=== PATIENT | male | born 1980 | race Caucasian/White ===

== ENCOUNTER 2017-07-13 14:35 | Inpatient (IN) | payer OTHER ==
[~2017-07-13] VITALS: Ht 190.5 cm; Wt 103.2 kg
[~2017-07-13 14:35] MED LIST: LYRICA100 MG PO; LYRICA200 MG PO
[2017-07-13 15:09] LABS: HEMATOCRIT 42.5 % (38.0-50.0); HEMOGLOBIN 14.5 G/DL (12.5-16.6); MCHC 34.1 G/DL (30.0-36.0); MCV 99.8 FL (86-99); RBC DIS.WIDTH-CV 12.1 % (11.8-14.6); RBC DIS.WIDTH-SD 44.7 % (39-53); RED BLOOD COUNT 4.26 M/uL (4.00-5.50); WHITE BLOOD COUNT 9.4 K/uL (4.1-10.2)
[2017-07-13 15:11] LABS: APPEARANCE SL.HAZY ((CLEAR)); BILIRUBIN NEGATIVE; BLOOD NEGATIVE; COLOR AMBER ((YELLOW)); GLUCOSE (STRIP) NEGATIVE; KETONES 5; LEUKOCYTES NEGATIVE; NITRITE NEGATIVE; PROTEIN (STRIP) 30; SPECIFIC GRAVITY 1.021 (1.000-1.030)
[2017-07-13 15:18] LABS: BACTERIA RARE /HPF; CALCIUM OXALATE CRYSTALS 2+ /HPF; EPITHELIAL CELLS RARE /HPF; MUCUS TRACE /LPF; RED BLOOD CELLS 0-5 /HPF (0-5); UCUL ADDED? YES
[2017-07-13 15:20] LABS: AMPHETAMINE NEGATIVE (500 ng/mL); BARBITURATES NEGATIVE (200 ng/mL); BENZODIAZEPINES PRESUMPTIVE POSITIVE (150 ng/mL); BUPRENORPHINE NEGATIVE (10 ng/mL); COCAINE NEGATIVE (150 ng/mL); METHADONE NEGATIVE (200 ng/mL); METHAMPHETAMINE NEGATIVE (500 ng/mL); OPIATES (MORPHINE) NEGATIVE (100 ng/mL); OXYCODONE NEGATIVE (100 ng/mL); PHENCYCLIDINE NEGATIVE (25 ng/mL); PROPOXYPHENE NEGATIVE (300 ng/mL); THC CANNABINOIDS NEGATIVE (50 ng/mL); TRICYCLIC ANTIDEPRESSANTS NEGATIVE (300 ng/mL)
[2017-07-13 15:22] LABS: CHLORIDE 102 mEq/L (99-109); POTASSIUM 4.5 mEq/L (3.7-5.4); SODIUM 140 mEq/L (136-147)
[2017-07-13 15:24] LABS: GLUCOSE 194 mg/dL (70-99); TOTAL PROTEIN 6.7 g/dL (6.4-8.3)
[2017-07-13 15:26] LABS: TOTAL BILIRUBIN 4.7 mg/dL (0.0-1.0)
[2017-07-13 15:27] LABS: SERUM ETHYL ALCOHOL < 10 mg/dL
[2017-07-13 15:28] LABS: ALKALINE PHOSPHATASE 263 IU/L (3-129); CREATININE 0.9 mg/dL (0.6-1.3); GFR ESTIMATE (CALCULATED) > 59 mL/min/ (58.99-99999)
[2017-07-13 15:29] LABS: UREA NITROGEN (BUN) 15 mg/dL (9-23)
[2017-07-13 15:30] LABS: AST (GOT) 171 IU/L (2-34)
[2017-07-13 15:31] LABS: ALT (GPT) 45 IU/L (3-49); LIPASE 111 U/L (1.0-51.0)
[2017-07-13 15:57] LABS: IMM.PLATELET FRACTION 9.2 (1-7); PLAT.SUFFICIENCY VERY DECREASED
[2017-07-13 16:02] LABS: PLATELET COUNT 29 K/uL (156-360)
[2017-07-13 16:34] LABS: BENZODIAZEPINES, URINE SCREEN POSITIVE (200 ng/mL)
[2017-07-13] MEDS ORDERED: GLUCOTROL5 MG PO (17:51)
[2017-07-13] MEDS ORDERED: LYRICA300 MG PO (17:51)
[2017-07-13] MEDS ORDERED: PRILOSEC20 MG PO (17:52)
[2017-07-13] MEDS ORDERED: LIPITOR10 MG PO (17:52)
[2017-07-13] MEDS ORDERED: BENICAR HCT 201 EACH PO (17:52)
[2017-07-13] MEDS ORDERED: K-DUR20 MEQ PO (17:53)
[2017-07-13] MEDS ORDERED: CELEXA20 MG PO (17:53)
[2017-07-13 18:36] LABS: HEMATOCRIT 38.2 % (38.0-50.0); MCH 34.2 PG (29.0-34.0); MCV 100.5 FL (86-99); RBC DIS.WIDTH-CV 12.2 % (11.8-14.6); RBC DIS.WIDTH-SD 45.6 % (39-53); WHITE BLOOD COUNT 8.1 K/uL (4.1-10.2)
[2017-07-13 19:18] LABS: IMM.PLATELET FRACTION 9.9 (1-7); PLAT.SUFFICIENCY VERY DECREASED
[2017-07-13 19:19] LABS: PLATELET COUNT 23 K/uL (156-360)
[2017-07-14] VITALS (7 sets, daily range): BP systolic 117–139; BP diastolic 62–80
[2017-07-14 02:32] LABS: C DIFF TOXIN POSITIVE (NEGATIVE)
[2017-07-14 07:08] LABS: ALBUMIN 3.1 G/DL (3.2-4.8); ALKALINE PHOSPHATASE 183 IU/L (3-129); ALT (GPT) 31 IU/L (3-49); AST (GOT) 119 IU/L (2-34); CHLORIDE 104 MEQ/L (99-109); CREATININE 0.9 MG/DL (0.6-1.3); DIRECT BILIRUBIN 3.1 mg/dL (0.0-0.3); GFR ESTIMATE (CALCULATED) > 59 mL/min/ (58.99-99999); GLUCOSE 59 mg/dL (70-99); LIPASE 114 U/L (1.0-51.0); POTASSIUM 3.6 MEQ/L (3.7-5.4); SODIUM 140 MEQ/L (136-147); TOTAL BILIRUBIN 5.2 MG/DL (0.0-1.0); TOTAL PROTEIN 4.9 G/DL (6.4-8.3); UREA NITROGEN (BUN) 14 mg/dL (9-23)
[2017-07-14 10:27] LABS: MAGNESIUM 1.6 mg/dl (1.3-2.7)
[2017-07-14 10:38] LABS: HEMOGLOBIN A1c (GLYCOHEMOGLOB) 6.3 % (Below 5.7)
[2017-07-15] VITALS (7 sets, daily range): BP systolic 100–126; BP diastolic 59–82
[2017-07-15 06:38] LABS: HEMOGLOBIN 11.4 G/DL (12.5-16.6); MCH 33.9 PG (29.0-34.0); MCHC 32.6 G/DL (30.0-36.0); MCV 104.2 FL (86-99); RBC DIS.WIDTH-SD 46.1 % (39-53); RED BLOOD COUNT 3.36 M/uL (4.00-5.50); WHITE BLOOD COUNT 6.3 K/uL (4.1-10.2)
[2017-07-15 06:56] LABS: INTER. NORMALIZED RATIO 1.6
[2017-07-15 06:59] LABS: PTT 33.2 SEC (25-37)
[2017-07-15 07:08] LABS: ALKALINE PHOSPHATASE 163 IU/L (3-129); ALT (GPT) 30 IU/L (3-49); AST (GOT) 103 IU/L (2-34); CHLORIDE 106 MEQ/L (99-109); CREATININE 0.8 MG/DL (0.6-1.3); GFR ESTIMATE (CALCULATED) > 59 mL/min/ (58.99-99999); GLUCOSE 88 mg/dL (70-99); SODIUM 137 MEQ/L (136-147); TOTAL BILIRUBIN 7.2 MG/DL (0.0-1.0); TOTAL PROTEIN 5.1 G/DL (6.4-8.3); UREA NITROGEN (BUN) 10 mg/dL (9-23)
[2017-07-15 07:09] LABS: PLAT.SUFFICIENCY VERY DECREASED
[2017-07-15 07:20] LABS: IMM.PLATELET FRACTION 8.5 (1-7)
[2017-07-15 07:24] LABS: PLATELET COUNT 23 K/uL (156-360)
[2017-07-16 03:25] VITALS: BP 110/78
[2017-07-16 07:12] LABS: BASOPHIL (%) 0.6 % (0-1); EOSINOPHIL (%) 0.6 % (0-5); HEMATOCRIT 37.5 % (38.0-50.0); IMMATURE GRANULOCYTE (%) 0.4 % (0.0-0.7); LYMPHOCYTE (%) 14.5 % (15-42); MCH 33.7 PG (29.0-34.0); MCV 105.3 FL (86-99); MONOCYTE COUNT 0.7 K/uL (0-0.8); NEUTROPHIL (%) 73.9 % (45-76); RBC DIS.WIDTH-CV 12.1 % (11.8-14.6); RBC DIS.WIDTH-SD 47.3 % (39-53); RED BLOOD COUNT 3.56 M/uL (4.00-5.50); WHITE BLOOD COUNT 6.7 K/uL (4.1-10.2)
[2017-07-16 07:38] LABS: ALBUMIN 3.1 G/DL (3.2-4.8); CHLORIDE 104 MEQ/L (99-109); CREATININE 0.9 MG/DL (0.6-1.3); GFR ESTIMATE (CALCULATED) > 59 mL/min/ (58.99-99999); GLUCOSE 109 mg/dL (70-99); POTASSIUM 3.7 MEQ/L (3.7-5.4); SODIUM 139 MEQ/L (136-147); UREA NITROGEN (BUN) 10 mg/dL (9-23)
[2017-07-16 07:48] LABS: ANISOCYTOSIS 1+; IMM.PLATELET FRACTION 8.3 (1-7); MACROCYTES 2+; PLAT.SUFFICIENCY VERY DECREASED; SPHEROCYTES 1+
[2017-07-16 07:49] LABS: PLATELET COUNT 31 K/uL (156-360)
[2017-07-16 08:29] VITALS: BP 139/65
[2017-07-16 11:46] VITALS: BP 110/63
[2017-07-16 16:00] VITALS: BP 116/60
[2017-07-16 19:44] VITALS: BP 111/71
[2017-07-17] VITALS (7 sets, daily range): BP systolic 105–127; BP diastolic 59–82
[2017-07-17 06:39] LABS: BASOPHIL (%) 0.5 % (0-1); EOSINOPHIL (%) 0.9 % (0-5); EOSINOPHIL COUNT 0.1 K/uL (0-0.3); HEMATOCRIT 37.8 % (38.0-50.0); IMMATURE GRANULOCYTE (%) 0.5 % (0.0-0.7); LYMPHOCYTE (%) 19.8 % (15-42); LYMPHOCYTE COUNT 1.3 K/uL (1.0-2.8); MCH 33.1 PG (29.0-34.0); MCHC 31.7 G/DL (30.0-36.0); MCV 104.4 FL (86-99); MONOCYTE (%) 13.8 % (3-12); MONOCYTE COUNT 0.9 K/uL (0-0.8); NEUTROPHIL (%) 64.5 % (45-76); NEUTROPHIL COUNT 4.1 K/uL (1.8-6.4); RBC DIS.WIDTH-CV 12.4 % (11.8-14.6); RBC DIS.WIDTH-SD 47.7 % (39-53); RED BLOOD COUNT 3.62 M/uL (4.00-5.50); WHITE BLOOD COUNT 6.3 K/uL (4.1-10.2)
[2017-07-17 07:04] LABS: ALBUMIN 3.1 G/DL (3.2-4.8); ALKALINE PHOSPHATASE 182 IU/L (3-129); ALT (GPT) 28 IU/L (3-49); AST (GOT) 80 IU/L (2-34); CHLORIDE 106 MEQ/L (99-109); CREATININE 0.8 MG/DL (0.6-1.3); GFR ESTIMATE (CALCULATED) > 59 mL/min/ (58.99-99999); GLUCOSE 95 mg/dL (70-99); MAGNESIUM 1.3 mg/dl (1.3-2.7); PHOSPHORUS 2.6 mg/dL (2.5-4.9); POTASSIUM 3.8 MEQ/L (3.7-5.4); SODIUM 136 MEQ/L (136-147); TOTAL PROTEIN 4.8 G/DL (6.4-8.3); UREA NITROGEN (BUN) 8 mg/dL (9-23)
[2017-07-17 07:14] LABS: ANISOCYTOSIS 1+; IMM.PLATELET FRACTION 7.7 (1-7); MACROCYTES 1+; PLAT.SUFFICIENCY DECREASED; PLATELET COUNT 35 K/uL (156-360); POLYCHROMASIA 1+
[2017-07-18 04:04] VITALS: BP 125/75
[2017-07-18 07:05] VITALS: BP 120/62
[2017-07-18 10:39] LABS: BASOPHIL (%) 0.6 % (0-1); EOSINOPHIL (%) 0.8 % (0-5); EOSINOPHIL COUNT 0.1 K/uL (0-0.3); HEMATOCRIT 36.3 % (38.0-50.0); HEMOGLOBIN 11.8 G/DL (12.5-16.6); IMMATURE GRANULOCYTE (%) 0.6 % (0.0-0.7); LYMPHOCYTE (%) 16.9 % (15-42); MCH 33.5 PG (29.0-34.0); MCHC 32.5 G/DL (30.0-36.0); MCV 103.1 FL (86-99); MONOCYTE (%) 17.3 % (3-12); MONOCYTE COUNT 1.1 K/uL (0-0.8); NEUTROPHIL (%) 63.8 % (45-76); NEUTROPHIL COUNT 3.9 K/uL (1.8-6.4); RBC DIS.WIDTH-CV 12.7 % (11.8-14.6); RED BLOOD COUNT 3.52 M/uL (4.00-5.50); WHITE BLOOD COUNT 6.2 K/uL (4.1-10.2)
[2017-07-18 10:56] LABS: ALBUMIN 2.9 G/DL (3.2-4.8); ALKALINE PHOSPHATASE 164 IU/L (3-129); ALT (GPT) 25 IU/L (3-49); AST (GOT) 72 IU/L (2-34); CHLORIDE 103 MEQ/L (99-109); CREATININE 0.8 MG/DL (0.6-1.3); DIRECT BILIRUBIN 4.8 mg/dL (0.0-0.3); GFR ESTIMATE (CALCULATED) > 59 mL/min/ (58.99-99999); GLUCOSE 118 mg/dL (70-99); POTASSIUM 4.5 MEQ/L (3.7-5.4); SODIUM 136 MEQ/L (136-147); TOTAL BILIRUBIN 7.5 MG/DL (0.0-1.0); TOTAL PROTEIN 4.6 G/DL (6.4-8.3); UREA NITROGEN (BUN) 8 mg/dL (9-23)
[2017-07-18 11:00] VITALS: BP 124/65
[2017-07-18 11:54] LABS: IMM.PLATELET FRACTION 7.8 (1-7); PLAT.SUFFICIENCY DECREASED; PLATELET COUNT 45 K/uL (156-360)
[2017-07-18] MEDS ORDERED: VANCOCIN 250 M250 MG PO (13:02)
[2017-07-18] MEDS ORDERED: FOLIC ACID1 MG PO (13:50)
[2017-07-18] MEDS ORDERED: MEPHYTON5 MG PO (13:50)
[2017-07-18] MEDS ORDERED: PEPCID20 MG PO (13:51)
[2017-07-18] MEDS ORDERED: LIBRIUM10 MG PO (13:58)
[2017-07-18] MEDS ORDERED: Thiamine,Vitamin B1 PO (13:58)
== END 2017-07-18 16:24 | disposition home or self-care (01) | DRG 372 ==
LOC: EME 14:35 → 5EAST 17:29 → EDOF 17:29 → ENRESERV 17:31 → 5EAST 20:35 → ENPENDDIS 07-18 → 5EAST 07-18 16:24
PROVIDERS: Emergency Medicine; Hospitalist; Internal Medicine; Internal Medicine Gastroenterology; Internal Medicine Hematology & Oncology
DX: A04.72 Enterocolitis due to Clostridium difficile, not specified as recurrent (principal); E83.42 Hypomagnesemia; D69.59 Other secondary thrombocytopenia; D68.4 Acquired coagulation factor deficiency; E11.42 Type 2 diabetes mellitus with diabetic polyneuropathy; K70.0 Alcoholic fatty liver; K70.10 Alcoholic hepatitis without ascites; F10.239 Alcohol dependence with withdrawal, unspecified; Y90.0 Blood alcohol level of less than 20 mg/100 ml; E87.6 Hypokalemia; D73.1 Hypersplenism; I10 Essential (primary) hypertension; K21.9 Gastro-esophageal reflux disease without esophagitis; F41.9 Anxiety disorder, unspecified; F17.210 Nicotine dependence, cigarettes, uncomplicated
CPT/HCPCS: 74019; 74177; 80048; 80053; 80069; 80076; 81003; 82607; 82746; 82948; 83036; 83605; 83690; 83735; 84100; 84999; 85025; 85027; 85610; 85730; 87086; 87177; 87329; 87493; 87506; 99281; 99284; G0480; J0744; J1170; J1815; J2060; J2405; J2765; J3411; J3475; J3480; J7030; S0028; S0030

== ENCOUNTER 2017-07-26 18:52 | Inpatient (IN) | payer OTHER ==
[~2017-07-26] VITALS: Ht 190.5 cm; Wt 123.8 kg
[~2017-07-26 18:52] MED LIST changes: +BENICAR HCT 201 EACH PO; +CELEXA20 MG PO; +FOLIC ACID1 MG PO; +GLUCOTROL5 MG PO; +K-DUR20 MEQ PO; +LIBRIUM10 MG PO; +LIPITOR10 MG PO; +LYRICA300 MG PO; +MEPHYTON5 MG PO; +PEPCID20 MG PO; +PRILOSEC20 MG PO; +Thiamine,Vitamin B1 PO; +VANCOCIN 250 M250 MG PO
[2017-07-26 20:27] LABS: BASOPHIL (%) 1.2 % (0-1); BASOPHIL COUNT 0.2 K/uL (0-0.1); EOSINOPHIL (%) 0.6 % (0-5); EOSINOPHIL COUNT 0.1 K/uL (0-0.3); HEMATOCRIT 43.4 % (38.0-50.0); IMMATURE GRANULOCYTE (%) 0.4 % (0.0-0.7); LYMPHOCYTE (%) 29.7 % (15-42); LYMPHOCYTE COUNT 4.3 K/uL (1.0-2.8); MCH 34.1 PG (29.0-34.0); MCHC 33.6 G/DL (30.0-36.0); MCV 101.4 FL (86-99); MONOCYTE (%) 7.2 % (3-12); NEUTROPHIL (%) 60.9 % (45-76); NEUTROPHIL COUNT 8.8 K/uL (1.8-6.4); RBC DIS.WIDTH-CV 13.2 % (11.8-14.6); WHITE BLOOD COUNT 14.4 K/uL (4.1-10.2)
[2017-07-26 20:29] LABS: HEMOGLOBIN 14.6 G/DL (12.5-16.6); PLATELET COUNT 207 K/uL (156-360); RED BLOOD COUNT 4.28 M/uL (4.00-5.50)
[2017-07-26 20:49] LABS: ALBUMIN 3.6 g/dL (3.2-4.8); CHLORIDE 106 mEq/L (99-109); POTASSIUM 4.1 mEq/L (3.7-5.4); SODIUM 141 mEq/L (136-147)
[2017-07-26 20:49] LABS: APPEARANCE SL.HAZY ((CLEAR)); BILIRUBIN NEGATIVE; BLOOD NEGATIVE; GLUCOSE (STRIP) NEGATIVE; KETONES NEGATIVE; LEUKOCYTES NEGATIVE; NITRITE NEGATIVE; PROTEIN (STRIP) NEGATIVE; SPECIFIC GRAVITY 1.013 (1.000-1.030); UROBILINOGEN 0.2 MG/DL (0.2-1.0)
[2017-07-26 20:52] LABS: GLUCOSE 78 mg/dL (70-99); TOTAL PROTEIN 6.3 g/dL (6.4-8.3)
[2017-07-26 20:53] LABS: TOTAL BILIRUBIN 2.3 mg/dL (0.0-1.0)
[2017-07-26 20:54] LABS: SERUM ETHYL ALCOHOL 285 mg/dL
[2017-07-26 20:55] LABS: ALKALINE PHOSPHATASE 246 IU/L (3-129); CREATININE 0.7 mg/dL (0.6-1.3); GFR ESTIMATE (CALCULATED) > 59 mL/min/ (58.99-99999)
[2017-07-26 20:56] LABS: UREA NITROGEN (BUN) 8 mg/dL (9-23)
[2017-07-26 20:57] LABS: AST (GOT) 157 IU/L (2-34); DIRECT BILIRUBIN 1.7 mg/dL (0.0-0.3)
[2017-07-26 20:58] LABS: ALT (GPT) 36 IU/L (3-49)
[2017-07-26 20:59] LABS: LIPASE 44 U/L (1.0-51.0)
[2017-07-26 21:03] LABS: BACTERIA 1+ /HPF; COLOR AMBER ((YELLOW)); EPITHELIAL CELLS RARE /HPF; HYALINE CASTS 40-50 /LPF; MUCUS TRACE /LPF; RED BLOOD CELLS 0-5 /HPF (0-5); WHITE BLOOD CELLS 0-5 /HPF (0-5)
[2017-07-26 21:28] LABS: SOURCE URINE
[2017-07-26] MEDS ORDERED: POTASSIUM CHLO20 ME2 PO (23:04)
[2017-07-26] MEDS ORDERED: VITAMIN B-1100 MG PO (23:05)
[2017-07-26] MEDS ORDERED: CITALOPRAM HBR20 MG PO (23:05)
[2017-07-26] MEDS ORDERED: CHLORDIAZEPOXID10 MG PO (23:07)
[2017-07-26] MEDS ORDERED: GLIPIZIDE5 MG PO (23:07)
[2017-07-26] MEDS ORDERED: ATORVASTATIN CA10 MG PO (23:08)
[2017-07-26] MEDS ORDERED: OMEPRAZOLE20 MG PO (23:09)
[2017-07-26] MEDS ORDERED: OLMESARTAN-HCT1 EACH PO (23:10)
[2017-07-27 09:31] LABS: HEMOGLOBIN 12.9 G/DL (12.5-16.6); MCH 34.1 PG (29.0-34.0); MCHC 33.1 G/DL (30.0-36.0); MCV 103.2 FL (86-99); RBC DIS.WIDTH-SD 49.7 % (39-53); RED BLOOD COUNT 3.78 M/uL (4.00-5.50); WHITE BLOOD COUNT 9.8 K/uL (4.1-10.2)
[2017-07-27 09:41] LABS: ALBUMIN 3.1 g/dL (3.2-4.8); CHLORIDE 107 mEq/L (99-109); POTASSIUM 4.4 mEq/L (3.7-5.4); SODIUM 139 mEq/L (136-147)
[2017-07-27 09:44] LABS: GLUCOSE 57 mg/dL (70-99); TOTAL PROTEIN 5.4 g/dL (6.4-8.3)
[2017-07-27 09:46] LABS: TOTAL BILIRUBIN 2.3 mg/dL (0.0-1.0)
[2017-07-27 09:47] LABS: ALKALINE PHOSPHATASE 213 IU/L (3-129); CREATININE 0.6 mg/dL (0.6-1.3); GFR ESTIMATE (CALCULATED) > 59 mL/min/ (58.99-99999)
[2017-07-27 09:48] LABS: UREA NITROGEN (BUN) 7 mg/dL (9-23)
[2017-07-27 09:49] LABS: AST (GOT) 135 IU/L (2-34)
[2017-07-27 09:50] LABS: ALT (GPT) 32 IU/L (3-49)
[2017-07-27 10:12] LABS: PLATELET COUNT 125 K/uL (156-360)
[2017-07-27 13:50] LABS: C DIFF TOXIN ND (NEGATIVE)
[2017-07-27 14:55] LABS: CHLAMYDIA TRACHOMATIS NEGATIVE; NEISSERIA GONORRHOEAE NEGATIVE
[2017-07-27 15:57] VITALS: BP 122/80
[2017-07-27 19:56] VITALS: BP 140/74
[2017-07-27 23:46] VITALS: BP 125/76
[2017-07-28 05:01] VITALS: BP 136/78
[2017-07-28 08:29] VITALS: BP 137/86
[2017-07-28 11:05] LABS: HEMATOCRIT 38.1 % (38.0-50.0); HEMOGLOBIN 12.6 G/DL (12.5-16.6); MCH 33.6 PG (29.0-34.0); MCHC 33.1 G/DL (30.0-36.0); MCV 101.6 FL (86-99); PLATELET COUNT 97 K/uL (156-360); RBC DIS.WIDTH-CV 12.4 % (11.8-14.6); RBC DIS.WIDTH-SD 46.8 % (39-53); RED BLOOD COUNT 3.75 M/uL (4.00-5.50); WHITE BLOOD COUNT 8.6 K/uL (4.1-10.2)
[2017-07-28 11:37] LABS: ALBUMIN 3.1 G/DL (3.2-4.8); ALKALINE PHOSPHATASE 199 IU/L (3-129); ALT (GPT) 23 IU/L (3-49); AST (GOT) 96 IU/L (2-34); CHLORIDE 98 MEQ/L (99-109); CREATININE 0.6 MG/DL (0.6-1.3); GFR ESTIMATE (CALCULATED) > 59 mL/min/ (58.99-99999); SODIUM 137 MEQ/L (136-147); TOTAL BILIRUBIN 3.7 MG/DL (0.0-1.0); UREA NITROGEN (BUN) 8 mg/dL (9-23)
[2017-07-28 11:38] LABS: GLUCOSE 110 mg/dL (70-99)
[2017-07-28 13:49] VITALS: BP 136/80
[2017-07-28 15:55] VITALS: BP 132/83
[2017-07-28 19:49] VITALS: BP 128/85
[2017-07-29 00:01] VITALS: BP 112/67
[2017-07-29 00:04] LABS: ALBUMIN 3.1 g/dL (3.2-4.8)
[2017-07-29 00:09] LABS: ALKALINE PHOSPHATASE 211 IU/L (3-129)
[2017-07-29 00:10] LABS: TOTAL BILIRUBIN 3.1 mg/dL (0.0-1.0)
[2017-07-29 00:12] LABS: AST (GOT) 101 IU/L (2-34); DIRECT BILIRUBIN 2.1 mg/dL (0.0-0.3)
[2017-07-29 00:13] LABS: ALT (GPT) 25 IU/L (3-49); LIPASE 36 U/L (1.0-51.0)
[2017-07-29 04:21] VITALS: BP 135/77
[2017-07-29 06:46] LABS: HEMATOCRIT 37.1 % (38.0-50.0); HEMOGLOBIN 12.3 G/DL (12.5-16.6); MCH 34.1 PG (29.0-34.0); MCHC 33.2 G/DL (30.0-36.0); MCV 102.8 FL (86-99); PLATELET COUNT 94 K/uL (156-360); RBC DIS.WIDTH-CV 12.5 % (11.8-14.6); RBC DIS.WIDTH-SD 47.2 % (39-53); RED BLOOD COUNT 3.61 M/uL (4.00-5.50)
[2017-07-29 07:12] LABS: ALBUMIN 2.9 G/DL (3.2-4.8); ALKALINE PHOSPHATASE 173 IU/L (3-129); ALT (GPT) 22 IU/L (3-49); AST (GOT) 103 IU/L (2-34); CHLORIDE 98 MEQ/L (99-109); CREATININE 0.6 MG/DL (0.6-1.3); GFR ESTIMATE (CALCULATED) > 59 mL/min/ (58.99-99999); GLUCOSE 109 mg/dL (70-99); POTASSIUM 3.6 MEQ/L (3.7-5.4); SODIUM 138 MEQ/L (136-147); TOTAL BILIRUBIN 3.3 MG/DL (0.0-1.0); TOTAL PROTEIN 4.8 G/DL (6.4-8.3); UREA NITROGEN (BUN) 7 mg/dL (9-23)
[2017-07-29 07:45] VITALS: BP 124/76
[2017-07-29 11:50] VITALS: BP 138/74
[2017-07-29 16:17] VITALS: BP 123/77
[2017-07-29 20:35] VITALS: BP 128/83
[2017-07-30 06:43] LABS: INTER. NORMALIZED RATIO 1.6
[2017-07-30 06:46] LABS: PTT 35.3 SEC (25-37)
[2017-07-30 07:07] LABS: A/G RATIO 1.6 (1.1-1.8); ALBUMIN 2.8 G/DL (3.2-4.8); ALBUMIN 2.9 G/DL (3.4-5.0); ALKALINE PHOSPHATASE 170 IU/L (3-129); ALT (GPT) 24 IU/L (3-49); AST (GOT) 125 IU/L (2-34); DIRECT BILIRUBIN 1.4 mg/dL (0.0-0.3); GLOBULINS 1.8 G/DL (2.3-3.5); IRON 97 MCG/DL (35-150); TOTAL PROTEIN 4.7 G/DL (6.4-8.2); TOTAL PROTEIN 4.7 G/DL (6.4-8.3); TRANSFERRIN (TIBC) 157.9 mg/dL (215-380); TRANSFERRIN SATUR. 61 % (20-55)
[2017-07-30 07:26] VITALS: BP 132/78
[2017-07-30 08:14] LABS: HEMATOCRIT 36.3 % (38.0-50.0); HEMOGLOBIN 12.2 G/DL (12.5-16.6); MCH 34.8 PG (29.0-34.0); MCHC 33.6 G/DL (30.0-36.0); MCV 103.4 FL (86-99); PLATELET COUNT 95 K/uL (156-360); RBC DIS.WIDTH-CV 12.6 % (11.8-14.6); RBC DIS.WIDTH-SD 47.5 % (39-53); RED BLOOD COUNT 3.51 M/uL (4.00-5.50); WHITE BLOOD COUNT 7.2 K/uL (4.1-10.2)
[2017-07-30 08:16] LABS: FERRITIN 722 NG/ML (22-322)
[2017-07-30 08:29] LABS: CHLORIDE 104 MEQ/L (99-109); CREATININE 0.5 MG/DL (0.6-1.3); GFR ESTIMATE (CALCULATED) > 59 mL/min/ (58.99-99999); GLUCOSE 118 mg/dL (70-99); POTASSIUM 3.2 MEQ/L (3.7-5.4); SODIUM 136 MEQ/L (136-147); UREA NITROGEN (BUN) 5 mg/dL (9-23)
[2017-07-30 11:20] LABS: HEPATITIS B SURFACE ANTIGEN Nonreactive
[2017-07-30 11:21] LABS: ANTI-HEPATITIS A VIRUS (IGM) Nonreactive; HEPATITIS C ANTIBODY Nonreactive
[2017-07-30 11:22] LABS: ANTI-HEPATITIS B CORE (IGM) Nonreactive
[2017-07-30 11:35] LABS: TYPE OF FLUID PARACENTESIS
[2017-07-30 11:58] LABS: APPEARANCE SL. HAZY-YELLOW; BODY FLUID RBC'S < 1000 /MM^3 (0-100); BODY FLUID WBC'S 177 /MM^3 (0-500)
[2017-07-30 13:06] LABS: BODY FLUID EOSINOPHILS 0 % (0-25); MONONUCLEAR WBC'S 93 %; POLYNUCLEAR WBC'S 7 % (0-25)
[2017-07-30 16:07] VITALS: BP 119/73
[2017-07-31] VITALS: BP 132/67
[2017-07-31 07:40] VITALS: BP 136/72
[2017-07-31 10:23] LABS: BASOPHIL (%) 0.8 % (0-1); BASOPHIL COUNT 0.1 K/uL (0-0.1); EOSINOPHIL (%) 0.7 % (0-5); EOSINOPHIL COUNT 0.1 K/uL (0-0.3); HEMATOCRIT 40.3 % (38.0-50.0); HEMOGLOBIN 13.2 G/DL (12.5-16.6); IMMATURE GRANULOCYTE (%) 0.8 % (0.0-0.7); LYMPHOCYTE (%) 18.4 % (15-42); LYMPHOCYTE COUNT 1.6 K/uL (1.0-2.8); MCH 33.2 PG (29.0-34.0); MCHC 32.8 G/DL (30.0-36.0); MCV 101.5 FL (86-99); MONOCYTE (%) 7.9 % (3-12); MONOCYTE COUNT 0.7 K/uL (0-0.8); NEUTROPHIL (%) 71.4 % (45-76); NEUTROPHIL COUNT 6.4 K/uL (1.8-6.4); PLATELET COUNT 93 K/uL (156-360); RBC DIS.WIDTH-CV 12.3 % (11.8-14.6); RBC DIS.WIDTH-SD 46.5 % (39-53); RED BLOOD COUNT 3.97 M/uL (4.00-5.50); WHITE BLOOD COUNT 8.9 K/uL (4.1-10.2)
[2017-07-31 10:49] LABS: ALBUMIN 3.3 G/DL (3.2-4.8); ALKALINE PHOSPHATASE 187 IU/L (3-129); ALT (GPT) 32 IU/L (3-49); AST (GOT) 141 IU/L (2-34); CHLORIDE 101 MEQ/L (99-109); CREATININE 0.6 MG/DL (0.6-1.3); GFR ESTIMATE (CALCULATED) > 59 mL/min/ (58.99-99999); GLUCOSE 146 mg/dL (70-99); MAGNESIUM 1.7 mg/dl (1.3-2.7); POTASSIUM 3.6 MEQ/L (3.7-5.4); SODIUM 135 MEQ/L (136-147); TOTAL BILIRUBIN 3.1 MG/DL (0.0-1.0); TOTAL PROTEIN 5.7 G/DL (6.4-8.3); UREA NITROGEN (BUN) 5 mg/dL (9-23)
[2017-07-31 15:17] VITALS: BP 125/80
[2017-07-31 23:54] VITALS: BP 120/82
[2017-08-01 07:31] VITALS: BP 115/67
[2017-08-01 08:38] LABS: BASOPHIL (%) 0.9 % (0-1); BASOPHIL COUNT 0.1 K/uL (0-0.1); EOSINOPHIL (%) 1.1 % (0-5); EOSINOPHIL COUNT 0.1 K/uL (0-0.3); HEMATOCRIT 37.5 % (38.0-50.0); HEMOGLOBIN 12.2 G/DL (12.5-16.6); IMMATURE GRANULOCYTE (%) 0.4 % (0.0-0.7); LYMPHOCYTE (%) 21.9 % (15-42); MCH 33.3 PG (29.0-34.0); MCHC 32.5 G/DL (30.0-36.0); MCV 102.5 FL (86-99); MONOCYTE (%) 10.4 % (3-12); MONOCYTE COUNT 0.9 K/uL (0-0.8); NEUTROPHIL (%) 65.3 % (45-76); NEUTROPHIL COUNT 5.8 K/uL (1.8-6.4); PLATELET COUNT 84 K/uL (156-360); RBC DIS.WIDTH-CV 12.4 % (11.8-14.6); RBC DIS.WIDTH-SD 46.5 % (39-53); RED BLOOD COUNT 3.66 M/uL (4.00-5.50)
[2017-08-01 09:02] LABS: CHLORIDE 100 MEQ/L (99-109); CREATININE 0.7 MG/DL (0.6-1.3); GFR ESTIMATE (CALCULATED) > 59 mL/min/ (58.99-99999); MAGNESIUM 1.5 mg/dl (1.3-2.7); SODIUM 136 MEQ/L (136-147); UREA NITROGEN (BUN) 5 mg/dL (9-23)
[2017-08-01 09:04] LABS: GLUCOSE 97 mg/dL (70-99)
[2017-08-01] MEDS ORDERED: SPIRONOLACTONE25 MG PO (15:01)
[2017-08-01] MEDS ORDERED: VANCOMYCIN HCL125 MG PO (15:01)
[2017-08-01] MEDS ORDERED: OMEPRAZOLE40 M1 PO (15:02)
[2017-08-01] MEDS ORDERED: FUROSEMIDE40 MG PO (15:02)
[2017-08-01] MEDS ORDERED: HYDROCODON-ACE1 EAC9 PO (15:03)
[2017-08-01 16:13] VITALS: BP 120/82
[2017-08-02 14:40] LABS: ALBUMIN 2.57 G/DL (3.6-4.9); ALPHA-1 GLOBULIN 0.29 G/DL (0.15-0.40); ALPHA-2 GLOBULIN 0.66 G/DL (0.45-0.85); BETA-GLOBULIN 0.53 G/DL (0.65-1.15); GAMMA-GLOBULIN 0.65 G/DL (0.60-1.35)
== END 2017-08-01 16:24 | disposition home or self-care (01) | DRG 372 ==
LOC: EME 18:52 → EDOF 23:54 → ENRESERV 23:55 → EDOF 07-27 02:30 → CANRESERV 07-27 13:35 → ENRESERV 07-27 13:35 → 5SOUTH 07-27 15:33 → ENPENDDIS 08-01 15:15 → 5SOUTH 08-01 16:24
PROVIDERS: Hospitalist; Internal Medicine; Internal Medicine Gastroenterology; Physician Assistant; Physician Assistant Medical; Specialist
PROC: 0W9G3ZZ Drainage of Peritoneal Cavity, Percutaneous Approach (ICD-10-PCS; principal; 2017-07-30)
DX: A04.72 Enterocolitis due to Clostridium difficile, not specified as recurrent (principal); K76.6 Portal hypertension; K70.31 Alcoholic cirrhosis of liver with ascites; B37.0 Candidal stomatitis; D69.6 Thrombocytopenia, unspecified; K70.11 Alcoholic hepatitis with ascites; K29.20 Alcoholic gastritis without bleeding; D68.9 Coagulation defect, unspecified; F10.239 Alcohol dependence with withdrawal, unspecified; F17.210 Nicotine dependence, cigarettes, uncomplicated; K76.0 Fatty (change of) liver, not elsewhere classified; E11.9 Type 2 diabetes mellitus without complications; E78.5 Hyperlipidemia, unspecified; E83.51 Hypocalcemia; I10 Essential (primary) hypertension; K21.9 Gastro-esophageal reflux disease without esophagitis; E66.9 Obesity, unspecified; Z79.899 Other long term (current) drug therapy; Z91.14 Patient's other noncompliance with medication regimen; Z91.19 Patient's noncompliance with other medical treatment and regimen; Z79.84 Long term (current) use of oral hypoglycemic drugs; Z68.32 Body mass index [BMI] 32.0-32.9, adult
CPT/HCPCS: 49083; 74177; 76705; 80048; 80053; 80074; 80076; 81003; 82024 90; 82390; 82728; 83540; 83605; 83690; 83735; 84165; 84466; 85025; 85027; 85610; 85730; 86256 90; 87070; 87086; 87177; 87205; 87491; 87493; 87506; 87591; 88108; 88312; 89051; 99281; 99285; G0480; J0500; J2270; J2405; J3411; J3475; J7030; S0030

== ENCOUNTER 2017-09-30 09:23 | Emergency (ER) | payer OTHER ==
[~2017-09-30] VITALS: Ht 195.6 cm; Wt 97.7 kg
[~2017-09-30 09:23] MED LIST changes: +ATORVASTATIN CA10 MG PO; +CHLORDIAZEPOXID10 MG PO; +CITALOPRAM HBR20 MG PO; +FUROSEMIDE40 MG PO; +GLIPIZIDE5 MG PO; +HYDROCODON-ACE1 EAC9 PO; +OLMESARTAN-HCT1 EACH PO; +OMEPRAZOLE20 MG PO; +OMEPRAZOLE40 M1 PO; +POTASSIUM CHLO20 ME2 PO; +SPIRONOLACTONE25 MG PO; +VANCOMYCIN HCL125 MG PO; +VITAMIN B-1100 MG PO
[2017-09-30 10:09] LABS: HEMATOCRIT 39.9 % (38.0-50.0); HEMOGLOBIN 14.1 G/DL (12.5-16.6); MCH 33.2 PG (29.0-34.0); MCHC 35.3 G/DL (30.0-36.0); MCV 93.9 FL (86-99); RBC DIS.WIDTH-CV 11.9 % (11.8-14.6); RBC DIS.WIDTH-SD 41.1 % (39-53); RED BLOOD COUNT 4.25 M/uL (4.00-5.50); WHITE BLOOD COUNT 5.8 K/uL (4.1-10.2)
[2017-09-30 10:19] LABS: ALBUMIN 4.4 g/dL (3.2-4.8); CHLORIDE 101 mEq/L (99-109); POTASSIUM 3.5 mEq/L (3.7-5.4); SODIUM 140 mEq/L (136-147)
[2017-09-30 10:21] LABS: GLUCOSE 136 mg/dL (70-99)
[2017-09-30 10:23] LABS: TOTAL BILIRUBIN 4.2 mg/dL (0.0-1.0)
[2017-09-30 10:25] LABS: ALKALINE PHOSPHATASE 125 IU/L (3-129); CREATININE 0.8 mg/dL (0.6-1.3); GFR ESTIMATE (CALCULATED) > 59 mL/min/ (58.99-99999)
[2017-09-30 10:26] LABS: UREA NITROGEN (BUN) 11 mg/dL (9-23)
[2017-09-30 10:27] LABS: AST (GOT) 50 IU/L (2-34)
[2017-09-30 10:28] LABS: ALT (GPT) 29 IU/L (3-49)
[2017-09-30 11:09] LABS: IMM.PLATELET FRACTION 3.9 (1-7); PLAT.SUFFICIENCY VERY DECREASED; PLATELET COUNT 33 K/uL (156-360)
[2017-09-30 12:46] LABS: C DIFF TOXIN POSITIVE (NEGATIVE)
[2017-09-30] MEDS ORDERED: VANCOMYCIN HCL250 MG PO (15:21)
[2017-09-30] MEDS ORDERED: ATIVAN2 MG PO (15:42)
[2017-09-30 15:46] VITALS: BP 136/90
== END 2017-09-30 15:52 | disposition home or self-care (01) ==
LOC: EME 09:23
PROVIDERS: Emergency Medicine
DX: A04.72 Enterocolitis due to Clostridium difficile, not specified as recurrent (principal); I10 Essential (primary) hypertension; R73.03 Prediabetes; K21.9 Gastro-esophageal reflux disease without esophagitis; M10.9 Gout, unspecified; G62.9 Polyneuropathy, unspecified; F17.200 Nicotine dependence, unspecified, uncomplicated; Z86.19 Personal history of other infectious and parasitic diseases
CPT/HCPCS: 74177; 80053; 81003; 85027; 87493; 99281; 99284; J1885; J2405; J7040; S0028

== ENCOUNTER 2017-10-05 19:11 | Observation (INO) | payer OTHER ==
[~2017-10-05] VITALS: Ht 190.5 cm; Wt 107.0 kg
[~2017-10-05 19:11] MED LIST changes: +ATIVAN2 MG PO; +VANCOMYCIN HCL250 MG PO
[2017-10-05 19:55] LABS: HEMATOCRIT 37.6 % (38.0-50.0); HEMOGLOBIN 13.3 G/DL (12.5-16.6); MCH 33.6 PG (29.0-34.0); MCHC 35.4 G/DL (30.0-36.0); MCV 94.9 FL (86-99); RBC DIS.WIDTH-CV 12.7 % (11.8-14.6); RBC DIS.WIDTH-SD 43.7 % (39-53); RED BLOOD COUNT 3.96 M/uL (4.00-5.50); WHITE BLOOD COUNT 9.8 K/uL (4.1-10.2)
[2017-10-05 19:56] LABS: PLATELET COUNT 59 K/uL (156-360)
[2017-10-05 20:05] LABS: CHLORIDE 106 mEq/L (99-109); POTASSIUM 3.3 mEq/L (3.7-5.4); SODIUM 141 mEq/L (136-147)
[2017-10-05 20:07] LABS: GLUCOSE 164 mg/dL (70-99)
[2017-10-05 20:08] LABS: TOTAL PROTEIN 6.3 g/dL (6.4-8.3)
[2017-10-05 20:11] LABS: ALKALINE PHOSPHATASE 122 IU/L (3-129); CREATININE 1.2 mg/dL (0.6-1.3); GFR ESTIMATE (CALCULATED) > 59 mL/min/ (58.99-99999)
[2017-10-05 20:12] LABS: UREA NITROGEN (BUN) 5 mg/dL (9-23)
[2017-10-05 20:13] LABS: AST (GOT) 70 IU/L (2-34); TOTAL BILIRUBIN 0.9 mg/dL (0.0-1.0)
[2017-10-05 20:14] LABS: ALT (GPT) 47 IU/L (3-49)
[2017-10-05 21:12] LABS: APPEARANCE SL.HAZY ((CLEAR)); BILIRUBIN NEGATIVE; BLOOD NEGATIVE; COLOR AMBER ((YELLOW)); GLUCOSE (STRIP) NEGATIVE; KETONES NEGATIVE; LEUKOCYTES SMALL; NITRITE NEGATIVE; PROTEIN (STRIP) 100; SPECIFIC GRAVITY 1.015 (1.000-1.030)
[2017-10-05 21:39] LABS: BACTERIA RARE /HPF; EPITHELIAL CELLS RARE /HPF; HYALINE CASTS TNTC /LPF; MUCUS TRACE /LPF; RED BLOOD CELLS 0-5 /HPF (0-5); UCUL ADDED? YES
[2017-10-06] MEDS ORDERED: OMEPRAZOLE40 M1 PO (00:09)
[2017-10-06] MEDS ORDERED: FLAGYL500 MG PO (00:10)
[2017-10-06 01:28] VITALS: BP 105/57
[2017-10-06 02:44] LABS: MAGNESIUM 1.3 mg/dL (1.3-2.7)
[2017-10-06 08:09] LABS: HEMATOCRIT 34.3 % (38.0-50.0); HEMOGLOBIN 11.4 G/DL (12.5-16.6); MCH 32.9 PG (29.0-34.0); MCHC 33.2 G/DL (30.0-36.0); MCV 98.8 FL (86-99); RBC DIS.WIDTH-CV 13.1 % (11.8-14.6); RBC DIS.WIDTH-SD 46.6 % (39-53); RED BLOOD COUNT 3.47 M/uL (4.00-5.50); WHITE BLOOD COUNT 5.7 K/uL (4.1-10.2)
[2017-10-06 08:17] VITALS: BP 143/83
[2017-10-06 08:20] LABS: ALBUMIN 3.4 g/dL (3.2-4.8); CHLORIDE 106 mEq/L (99-109); POTASSIUM 3.5 mEq/L (3.7-5.4); SODIUM 139 mEq/L (136-147)
[2017-10-06 08:23] LABS: GLUCOSE 151 mg/dL (70-99)
[2017-10-06 08:24] LABS: TOTAL PROTEIN 5.3 g/dL (6.4-8.3)
[2017-10-06 08:26] LABS: ALKALINE PHOSPHATASE 103 IU/L (3-129); CREATININE 0.9 mg/dL (0.6-1.3); GFR ESTIMATE (CALCULATED) > 59 mL/min/ (58.99-99999); TOTAL BILIRUBIN 0.6 mg/dL (0.0-1.0)
[2017-10-06 08:27] LABS: UREA NITROGEN (BUN) 5 mg/dL (9-23)
[2017-10-06 08:28] LABS: AST (GOT) 55 IU/L (2-34)
[2017-10-06 08:29] LABS: ALT (GPT) 40 IU/L (3-49)
[2017-10-06 08:31] LABS: IMM.PLATELET FRACTION 7.2 (1-7); PLAT.SUFFICIENCY VERY DECREASED
[2017-10-06 08:38] LABS: PLATELET COUNT 34 K/uL (156-360)
[2017-10-06 09:43] LABS: LIPASE 39 U/L (1.0-51.0)
[2017-10-06 10:49] LABS: HEMATOCRIT 36.3 % (38.0-50.0); HEMOGLOBIN 12.3 G/DL (12.5-16.6); MCH 32.7 PG (29.0-34.0); MCHC 33.9 G/DL (30.0-36.0); MCV 96.5 FL (86-99); RBC DIS.WIDTH-CV 12.7 % (11.8-14.6); RBC DIS.WIDTH-SD 44.4 % (39-53); RED BLOOD COUNT 3.76 M/uL (4.00-5.50); WHITE BLOOD COUNT 4.3 K/uL (4.1-10.2)
[2017-10-06 11:17] LABS: CHLORIDE 108 MEQ/L (99-109); CREATININE 0.8 MG/DL (0.6-1.3); GFR ESTIMATE (CALCULATED) > 59 mL/min/ (58.99-99999); GLUCOSE 155 mg/dL (70-99); POTASSIUM 4.1 MEQ/L (3.7-5.4); SODIUM 140 MEQ/L (136-147); UREA NITROGEN (BUN) 5 mg/dL (9-23)
[2017-10-06 11:22] LABS: IMM.PLATELET FRACTION 5.5 (1-7); PLAT.SUFFICIENCY VERY DECREASED; PLATELET COUNT 33 K/uL (156-360)
[2017-10-06 11:24] VITALS: BP 135/82
[2017-10-06 12:22] LABS: C DIFF TOXIN ND (NEGATIVE)
[2017-10-06 15:35] VITALS: BP 137/88
[2017-10-06 19:37] VITALS: BP 141/90
[2017-10-06 20:51] LABS: INTER. NORMALIZED RATIO 1.5
[2017-10-07 00:33] VITALS: BP 136/87
[2017-10-07 04:17] VITALS: BP 133/85
[2017-10-07 05:27] LABS: HEMOGLOBIN 11.3 G/DL (12.5-16.6); MCHC 34.2 G/DL (30.0-36.0); MCV 96.5 FL (86-99); RBC DIS.WIDTH-CV 12.7 % (11.8-14.6); RBC DIS.WIDTH-SD 44.2 % (39-53); RED BLOOD COUNT 3.42 M/uL (4.00-5.50); WHITE BLOOD COUNT 4.5 K/uL (4.1-10.2)
[2017-10-07 05:57] LABS: ALKALINE PHOSPHATASE 78 IU/L (3-129); ALT (GPT) 27 IU/L (3-49); AST (GOT) 32 IU/L (2-34); CHLORIDE 108 MEQ/L (99-109); CREATININE 0.7 MG/DL (0.6-1.3); GFR ESTIMATE (CALCULATED) > 59 mL/min/ (58.99-99999); POTASSIUM 3.6 MEQ/L (3.7-5.4); SODIUM 140 MEQ/L (136-147); TOTAL BILIRUBIN 1.3 MG/DL (0.0-1.0); UREA NITROGEN (BUN) 5 mg/dL (9-23)
[2017-10-07 06:09] LABS: GLUCOSE 87 mg/dL (70-99)
[2017-10-07 06:21] LABS: PLAT.SUFFICIENCY VERY DECREASED
[2017-10-07 06:23] LABS: IMM.PLATELET FRACTION 6.5 (1-7); PLATELET COUNT 29 K/uL (156-360)
[2017-10-07 07:48] VITALS: BP 130/90
[2017-10-07 12:10] LABS: HEPATITIS B SURFACE ANTIBODY Nonreactive
[2017-10-07 12:43] VITALS: BP 130/78
[2017-10-07 16:03] VITALS: BP 128/86
[2017-10-08 00:10] VITALS: BP 147/84
[2017-10-08 06:04] LABS: HEMATOCRIT 34.3 % (38.0-50.0); HEMOGLOBIN 11.8 G/DL (12.5-16.6); MCH 33.1 PG (29.0-34.0); MCHC 34.4 G/DL (30.0-36.0); MCV 96.3 FL (86-99); RBC DIS.WIDTH-CV 12.8 % (11.8-14.6); RBC DIS.WIDTH-SD 45.4 % (39-53); RED BLOOD COUNT 3.56 M/uL (4.00-5.50); WHITE BLOOD COUNT 4.7 K/uL (4.1-10.2)
[2017-10-08 06:44] LABS: PLAT.SUFFICIENCY VERY DECREASED; PLATELET COUNT 31 K/uL (156-360)
[2017-10-08 08:12] VITALS: BP 138/78
[2017-10-08] MEDS ORDERED: VANCOCIN HCL125 MG PO ×2 (10:45→10:55)
[2017-10-08] MEDS ORDERED: VANCOCIN 250 M250 MG PO (10:45)
[2017-10-08] MEDS ORDERED: SUCRALFATE1 GM PO (10:45)
[2017-10-08] MEDS ORDERED: MYLICON,MYLANTA80 MG PO (10:45)
[2017-10-08] MEDS ORDERED: THERAGRAN1 TABLET PO (10:45)
[2017-10-08] MEDS ORDERED: BENTYL20 MG PO (10:45)
[2017-10-08] MEDS ORDERED: Thiamine,Vitamin B1 PO (10:45)
[2017-10-08] MEDS ORDERED: OXYCODONE HCL5 MG PO (10:45)
[2017-10-08] MEDS ORDERED: NICOTINE PATCH1 EAC1 TD (10:45)
[2017-10-08] MEDS ORDERED: FLORASTOR250 MG PO (10:45)
== END 2017-10-08 15:04 | disposition home or self-care (01) ==
LOC: EME 19:11 → EDOF 10-06 00:10 → 4SOUTH 10-06 00:10 → EDOF 10-06 00:10 → ENRESERV 10-06 00:14 → 4SOUTH 10-06 01:12
PROVIDERS: Emergency Medicine; Hospitalist; Internal Medicine; Physician Assistant Medical; Specialist
DX: A04.71 Enterocolitis due to Clostridium difficile, recurrent (principal); R10.13 Epigastric pain; F10.20 Alcohol dependence, uncomplicated; F17.200 Nicotine dependence, unspecified, uncomplicated; E78.5 Hyperlipidemia, unspecified; E11.40 Type 2 diabetes mellitus with diabetic neuropathy, unspecified; F41.9 Anxiety disorder, unspecified; F32.9 Major depressive disorder, single episode, unspecified; D69.6 Thrombocytopenia, unspecified; I10 Essential (primary) hypertension; K21.9 Gastro-esophageal reflux disease without esophagitis; D64.9 Anemia, unspecified; K76.0 Fatty (change of) liver, not elsewhere classified; Z91.19 Patient's noncompliance with other medical treatment and regimen; K70.31 Alcoholic cirrhosis of liver with ascites; Z91.14 Patient's other noncompliance with medication regimen; R59.1 Generalized enlarged lymph nodes; R82.71 Bacteriuria; I95.9 Hypotension, unspecified; E86.0 Dehydration; E87.6 Hypokalemia; Z79.84 Long term (current) use of oral hypoglycemic drugs
CPT/HCPCS: 74177; 80048 91; 80053; 81003; 81256 90; 82948; 83605; 83690; 83735; 85014; 85018; 85027; 85610; 86706; 87040; 87086; 87493; 99281; 99285; C9113; G0378; J1815; J2405; J3010; J3480; J7030; S0030

== ENCOUNTER 2017-10-27 10:28 | Emergency (ER) | payer OTHER ==
[~2017-10-27] VITALS: Ht 190.5 cm; Wt 100.2 kg
[~2017-10-27 10:28] MED LIST changes: +BENTYL20 MG PO; +FLAGYL500 MG PO; +FLORASTOR250 MG PO; +MYLICON,MYLANTA80 MG PO; +NICOTINE PATCH1 EAC1 TD; +OXYCODONE HCL5 MG PO; +SUCRALFATE1 GM PO; +THERAGRAN1 TABLET PO; +VANCOCIN HCL125 MG PO
[2017-10-27 11:17] LABS: APPEARANCE CLEAR ((CLEAR)); BILIRUBIN NEGATIVE; BLOOD NEGATIVE; COLOR AMBER ((YELLOW)); GLUCOSE (STRIP) NEGATIVE; KETONES 5; LEUKOCYTES NEGATIVE; NITRITE NEGATIVE; PROTEIN (STRIP) 30; SPECIFIC GRAVITY 1.021 (1.000-1.030); UCUL ADDED? NO; UROBILINOGEN 0.2 MG/DL (0.2-1.0)
[2017-10-27 11:23] LABS: ALBUMIN 4.3 g/dL (3.2-4.8); CHLORIDE 104 mEq/L (99-109); POTASSIUM 3.6 mEq/L (3.7-5.4); SODIUM 141 mEq/L (136-147)
[2017-10-27 11:25] LABS: GLUCOSE 210 mg/dL (70-99); HEMOGLOBIN 15.5 G/DL (12.5-16.6); IMM.PLATELET FRACTION 6.8 (1-7); MCH 33.3 PG (29.0-34.0); MCHC 35.2 G/DL (30.0-36.0); MCV 94.4 FL (86-99); PLATELET COUNT 50 K/uL (156-360); RBC DIS.WIDTH-SD 45.3 % (39-53); RED BLOOD COUNT 4.66 M/uL (4.00-5.50)
[2017-10-27 11:26] LABS: TOTAL PROTEIN 6.9 g/dL (6.4-8.3)
[2017-10-27 11:27] LABS: TOTAL BILIRUBIN 1.2 mg/dL (0.0-1.0)
[2017-10-27 11:29] LABS: ALKALINE PHOSPHATASE 141 IU/L (3-129); CREATININE 0.7 mg/dL (0.6-1.3); GFR ESTIMATE (CALCULATED) > 59 mL/min/ (58.99-99999)
[2017-10-27 11:30] LABS: UREA NITROGEN (BUN) 7 mg/dL (9-23)
[2017-10-27 11:31] LABS: AST (GOT) 91 IU/L (2-34)
[2017-10-27 11:32] LABS: ALT (GPT) 40 IU/L (3-49)
[2017-10-27 12:01] LABS: C DIFF TOXIN POSITIVE (NEGATIVE)
[2017-10-27] MEDS ORDERED: NORCO 5/3251 TABLET PO (15:38)
[2017-10-27] MEDS ORDERED: ZOFRAN ODT8 MG PO (15:38)
[2017-10-27] MEDS ORDERED: VANCOMYCIN HCL125 MG PO (15:38)
[2017-10-27 16:17] VITALS: BP 139/79
== END 2017-10-27 16:21 | disposition home or self-care (01) ==
LOC: EME 10:28
DX: A04.71 Enterocolitis due to Clostridium difficile, recurrent (principal); I10 Essential (primary) hypertension; R73.03 Prediabetes; Z79.84 Long term (current) use of oral hypoglycemic drugs; F17.200 Nicotine dependence, unspecified, uncomplicated
CPT/HCPCS: 80053; 81003; 85027; 87493; 99281; 99284

== ENCOUNTER 2017-11-22 07:04 | Inpatient (IN) | payer OTHER ==
[~2017-11-22] VITALS: Ht 190.5 cm; Wt 102.6 kg
[~2017-11-22 07:04] MED LIST changes: +NORCO 5/3251 TABLET PO; +ZOFRAN ODT8 MG PO
[2017-11-22 07:58] LABS: BASOPHIL (%) 0.4 % (0-1); EOSINOPHIL (%) 0.1 % (0-5); HEMATOCRIT 43.5 % (38.0-50.0); HEMOGLOBIN 15.4 G/DL (12.5-16.6); IMMATURE GRANULOCYTE (%) 0.4 % (0.0-0.7); LYMPHOCYTE (%) 5.6 % (15-42); LYMPHOCYTE COUNT 0.6 K/uL (1.0-2.8); MCH 33.7 PG (29.0-34.0); MCHC 35.4 G/DL (30.0-36.0); MCV 95.2 FL (86-99); MONOCYTE (%) 8.4 % (3-12); MONOCYTE COUNT 0.9 K/uL (0-0.8); NEUTROPHIL (%) 85.1 % (45-76); RBC DIS.WIDTH-CV 13.4 % (11.8-14.6); RBC DIS.WIDTH-SD 47.2 % (39-53); RED BLOOD COUNT 4.57 M/uL (4.00-5.50); WHITE BLOOD COUNT 10.5 K/uL (4.1-10.2)
[2017-11-22 08:19] LABS: CHLORIDE 96 MEQ/L (99-109); CREATININE 0.8 MG/DL (0.6-1.3); GFR ESTIMATE (CALCULATED) > 59 mL/min/ (58.99-99999); GLUCOSE 197 mg/dL (70-99); POTASSIUM 2.9 MEQ/L (3.7-5.4); SODIUM 138 MEQ/L (136-147); UREA NITROGEN (BUN) 6 mg/dL (9-23)
[2017-11-22 08:30] LABS: IMM.PLATELET FRACTION 10.3 (1-7); PLAT.SUFFICIENCY VERY DECREASED; PLATELET COUNT 26 K/uL (156-360)
[2017-11-22 09:07] LABS: C DIFF TOXIN POSITIVE (NEGATIVE)
[2017-11-22 13:28] LABS: CHLORIDE 101 mEq/L (99-109); POTASSIUM 3.1 mEq/L (3.7-5.4); SODIUM 139 mEq/L (136-147)
[2017-11-22 13:30] LABS: GLUCOSE 160 mg/dL (70-99)
[2017-11-22 13:34] LABS: CREATININE 0.8 mg/dL (0.6-1.3); GFR ESTIMATE (CALCULATED) > 59 mL/min/ (58.99-99999)
[2017-11-22 13:35] LABS: UREA NITROGEN (BUN) 6 mg/dL (9-23)
[2017-11-22] MEDS ORDERED: DAILY VITE1 EAC1 PO (13:36)
[2017-11-22] MEDS ORDERED: CARAFATE1 GM PO (13:36)
[2017-11-22] MEDS ORDERED: ZOFRAN ODT8 MG PO (13:37)
[2017-11-22] MEDS ORDERED: LORAZEPAM2 MG PO (13:44)
[2017-11-22] MEDS ORDERED: B-1100 MG PO (13:45)
[2017-11-22 14:46] VITALS: BP 130/88
[2017-11-22 19:54] LABS: CHLORIDE 103 MEQ/L (99-109); MAGNESIUM 1.5 mg/dl (1.3-2.7); POTASSIUM 2.8 MEQ/L (3.7-5.4); SODIUM 141 MEQ/L (136-147)
[2017-11-22 19:59] LABS: CREATININE 0.8 MG/DL (0.6-1.3); GFR ESTIMATE (CALCULATED) > 59 mL/min/ (58.99-99999); GLUCOSE 158 mg/dL (70-99); UREA NITROGEN (BUN) 7 mg/dL (9-23)
[2017-11-22 20:36] VITALS: BP 150/80
[2017-11-22 22:09] LABS: APPEARANCE SL.HAZY ((CLEAR)); BILIRUBIN SMALL; BLOOD NEGATIVE; COLOR AMBER ((YELLOW)); GLUCOSE (STRIP) NEGATIVE; KETONES NEGATIVE; LEUKOCYTES NEGATIVE; NITRITE NEGATIVE; PROTEIN (STRIP) NEGATIVE; SPECIFIC GRAVITY 1.015 (1.000-1.030)
[2017-11-22 22:20] LABS: BACTERIA NONE SEEN /HPF; EPITHELIAL CELLS RARE /HPF; MUCUS TRACE /LPF; RED BLOOD CELLS 0-5 /HPF (0-5); UCUL ADDED? NO; WHITE BLOOD CELLS 0-5 /HPF (0-5)
[2017-11-23 00:57] VITALS: BP 156/84
[2017-11-23 02:38] LABS: BASOPHIL (%) 0.2 % (0-1); EOSINOPHIL (%) 0.3 % (0-5); HEMATOCRIT 34.1 % (38.0-50.0); IMMATURE GRANULOCYTE (%) 0.5 % (0.0-0.7); LYMPHOCYTE (%) 15.6 % (15-42); LYMPHOCYTE COUNT 0.9 K/uL (1.0-2.8); MCH 34.2 PG (29.0-34.0); MCHC 34.6 G/DL (30.0-36.0); MCV 98.8 FL (86-99); MONOCYTE (%) 9.1 % (3-12); MONOCYTE COUNT 0.5 K/uL (0-0.8); NEUTROPHIL (%) 74.3 % (45-76); NEUTROPHIL COUNT 4.3 K/uL (1.8-6.4); RBC DIS.WIDTH-CV 13.4 % (11.8-14.6); RBC DIS.WIDTH-SD 48.4 % (39-53); WHITE BLOOD COUNT 5.8 K/uL (4.1-10.2)
[2017-11-23 02:39] LABS: HEMOGLOBIN 11.8 G/DL (12.5-16.6); RED BLOOD COUNT 3.45 M/uL (4.00-5.50)
[2017-11-23 02:47] LABS: CHLORIDE 106 mEq/L (99-109)
[2017-11-23 02:48] LABS: SODIUM 139 mEq/L (136-147)
[2017-11-23 02:49] LABS: GLUCOSE 130 mg/dL (70-99)
[2017-11-23 02:53] LABS: CREATININE 0.7 mg/dL (0.6-1.3); GFR ESTIMATE (CALCULATED) > 59 mL/min/ (58.99-99999)
[2017-11-23 02:54] LABS: UREA NITROGEN (BUN) 7 mg/dL (9-23)
[2017-11-23 03:31] LABS: IMM.PLATELET FRACTION 9.7 (1-7); PLAT.SUFFICIENCY VERY DECREASED
[2017-11-23 05:12] LABS: PLATELET COUNT 15 K/uL (156-360)
[2017-11-23 08:58] VITALS: BP 148/92
[2017-11-23 12:00] VITALS: BP 140/84
[2017-11-23 15:37] VITALS: BP 130/82
[2017-11-23 19:05] VITALS: BP 184/85
[2017-11-23 19:05] LABS: BASOPHIL (%) 0.4 % (0-1); EOSINOPHIL (%) 0.8 % (0-5); HEMOGLOBIN 12.7 G/DL (12.5-16.6); IMMATURE GRANULOCYTE (%) 0.4 % (0.0-0.7); LYMPHOCYTE (%) 16.4 % (15-42); LYMPHOCYTE COUNT 0.8 K/uL (1.0-2.8); MCH 33.3 PG (29.0-34.0); MCHC 33.4 G/DL (30.0-36.0); MCV 99.7 FL (86-99); MONOCYTE (%) 6.7 % (3-12); MONOCYTE COUNT 0.3 K/uL (0-0.8); NEUTROPHIL (%) 75.3 % (45-76); NEUTROPHIL COUNT 3.9 K/uL (1.8-6.4); RBC DIS.WIDTH-CV 13.4 % (11.8-14.6); RBC DIS.WIDTH-SD 49.3 % (39-53); RED BLOOD COUNT 3.81 M/uL (4.00-5.50); WHITE BLOOD COUNT 5.1 K/uL (4.1-10.2)
[2017-11-23 19:48] LABS: CHLORIDE 105 MEQ/L (99-109); CREATININE 0.6 MG/DL (0.6-1.3); GFR ESTIMATE (CALCULATED) > 59 mL/min/ (58.99-99999); GLUCOSE 157 mg/dL (70-99); POTASSIUM 2.9 MEQ/L (3.7-5.4); SODIUM 139 MEQ/L (136-147); UREA NITROGEN (BUN) 6 mg/dL (9-23)
[2017-11-23 19:57] LABS: IMM.PLATELET FRACTION 12.2 (1-7); PLAT.SUFFICIENCY VERY DECREASED
[2017-11-23 19:58] LABS: PLATELET COUNT 16 K/uL (156-360)
[2017-11-24 00:25] VITALS: BP 158/96
[2017-11-24 05:01] VITALS: BP 154/98
[2017-11-24 05:39] LABS: BASOPHIL (%) 0.4 % (0-1); EOSINOPHIL COUNT 0.1 K/uL (0-0.3); HEMATOCRIT 37.3 % (38.0-50.0); HEMOGLOBIN 12.6 G/DL (12.5-16.6); IMMATURE GRANULOCYTE (%) 0.2 % (0.0-0.7); LYMPHOCYTE (%) 22.9 % (15-42); LYMPHOCYTE COUNT 1.2 K/uL (1.0-2.8); MCH 33.7 PG (29.0-34.0); MCHC 33.8 G/DL (30.0-36.0); MCV 99.7 FL (86-99); MONOCYTE (%) 7.6 % (3-12); MONOCYTE COUNT 0.4 K/uL (0-0.8); NEUTROPHIL (%) 67.9 % (45-76); NEUTROPHIL COUNT 3.5 K/uL (1.8-6.4); RBC DIS.WIDTH-CV 13.3 % (11.8-14.6); RBC DIS.WIDTH-SD 48.9 % (39-53); RED BLOOD COUNT 3.74 M/uL (4.00-5.50); WHITE BLOOD COUNT 5.1 K/uL (4.1-10.2)
[2017-11-24 06:55] LABS: MAGNESIUM 1.9 mg/dl (1.3-2.7)
[2017-11-24 07:02] LABS: PLAT.SUFFICIENCY VERY DECREASED
[2017-11-24 07:42] VITALS: BP 144/96
[2017-11-24 07:46] LABS: IMM.PLATELET FRACTION 9.3 (1-7)
[2017-11-24 07:52] LABS: PLATELET COUNT 21 K/uL (156-360)
[2017-11-24 09:03] LABS: CHLORIDE 106 MEQ/L (99-109); CREATININE 0.6 MG/DL (0.6-1.3); GFR ESTIMATE (CALCULATED) > 59 mL/min/ (58.99-99999); GLUCOSE 97 mg/dL (70-99); POTASSIUM 2.9 MEQ/L (3.7-5.4); SODIUM 139 MEQ/L (136-147); UREA NITROGEN (BUN) 6 mg/dL (9-23)
[2017-11-24 15:29] VITALS: BP 160/99
[2017-11-24 20:31] VITALS: BP 172/98
[2017-11-25 00:34] VITALS: BP 163/96
[2017-11-25 05:23] LABS: HEMATOCRIT 39.4 % (38.0-50.0); HEMOGLOBIN 12.9 G/DL (12.5-16.6); MCHC 32.7 G/DL (30.0-36.0); MCV 100.8 FL (86-99); RBC DIS.WIDTH-CV 13.2 % (11.8-14.6); RBC DIS.WIDTH-SD 48.7 % (39-53); RED BLOOD COUNT 3.91 M/uL (4.00-5.50); WHITE BLOOD COUNT 4.9 K/uL (4.1-10.2)
[2017-11-25 05:54] LABS: CHLORIDE 104 MEQ/L (99-109); CREATININE 0.6 MG/DL (0.6-1.3); GFR ESTIMATE (CALCULATED) > 59 mL/min/ (58.99-99999); GLUCOSE 111 mg/dL (70-99); POTASSIUM 2.9 MEQ/L (3.7-5.4); SODIUM 137 MEQ/L (136-147); UREA NITROGEN (BUN) 5 mg/dL (9-23)
[2017-11-25 07:13] LABS: PLAT.SUFFICIENCY VERY DECREASED
[2017-11-25 07:49] LABS: PLATELET COUNT 24 K/uL (156-360)
[2017-11-25 08:23] VITALS: BP 134/90
[2017-11-25 20:49] VITALS: BP 168/94
[2017-11-26 00:19] VITALS: BP 176/107
[2017-11-26 04:00] VITALS: BP 153/92
[2017-11-26 08:49] LABS: HEMOGLOBIN 12.2 G/DL (12.5-16.6); MCHC 33.9 G/DL (30.0-36.0); MCV 100.3 FL (86-99); RBC DIS.WIDTH-CV 13.2 % (11.8-14.6); RED BLOOD COUNT 3.59 M/uL (4.00-5.50); WHITE BLOOD COUNT 3.8 K/uL (4.1-10.2)
[2017-11-26 09:13] LABS: CHLORIDE 106 MEQ/L (99-109); CREATININE 0.5 MG/DL (0.6-1.3); GFR ESTIMATE (CALCULATED) > 59 mL/min/ (58.99-99999); GLUCOSE 110 mg/dL (70-99); SODIUM 138 MEQ/L (136-147); UREA NITROGEN (BUN) 4 mg/dL (9-23)
[2017-11-26 09:34] LABS: MAGNESIUM 1.3 mg/dl (1.3-2.7)
[2017-11-26 09:41] LABS: IMM.PLATELET FRACTION 6.8 (1-7); PLAT.SUFFICIENCY DECREASED
[2017-11-26 09:54] LABS: PLATELET COUNT 28 K/uL (156-360)
[2017-11-26 17:44] VITALS: BP 173/98
[2017-11-26 21:01] VITALS: BP 140/80
[2017-11-26 21:01] LABS: CHLORIDE 106 MEQ/L (99-109); CREATININE 0.6 MG/DL (0.6-1.3); GFR ESTIMATE (CALCULATED) > 59 mL/min/ (58.99-99999); GLUCOSE 96 mg/dL (70-99); MAGNESIUM 1.7 mg/dl (1.3-2.7); POTASSIUM 3.4 MEQ/L (3.7-5.4); SODIUM 138 MEQ/L (136-147); UREA NITROGEN (BUN) 3 mg/dL (9-23)
[2017-11-27 00:36] VITALS: BP 171/97
[2017-11-27 04:53] VITALS: BP 136/84
[2017-11-27 08:45] VITALS: BP 148/82
[2017-11-27 09:48] LABS: CHLORIDE 108 MEQ/L (99-109); CREATININE 0.6 MG/DL (0.6-1.3); GFR ESTIMATE (CALCULATED) > 59 mL/min/ (58.99-99999); GLUCOSE 121 mg/dL (70-99); MAGNESIUM 1.5 mg/dl (1.3-2.7); POTASSIUM 3.3 MEQ/L (3.7-5.4); SODIUM 139 MEQ/L (136-147); UREA NITROGEN (BUN) 3 mg/dL (9-23)
[2017-11-27 10:51] LABS: ALBUMIN 3.1 G/DL (3.2-4.8); ALKALINE PHOSPHATASE 123 IU/L (3-129); ALT (GPT) 34 IU/L (3-49); AST (GOT) 67 IU/L (2-34); DIRECT BILIRUBIN 2.4 mg/dL (0.0-0.3); TOTAL BILIRUBIN 3.9 MG/DL (0.0-1.0); TOTAL PROTEIN 5.1 G/DL (6.4-8.3)
[2017-11-27 13:35] VITALS: BP 123/57
[2017-11-27 16:30] VITALS: BP 140/71
[2017-11-27 20:23] VITALS: BP 157/85
[2017-11-28] VITALS: BP 166/84
[2017-11-28 08:15] LABS: HEMATOCRIT 39.4 % (38.0-50.0); HEMOGLOBIN 12.8 G/DL (12.5-16.6); MCH 33.3 PG (29.0-34.0); MCHC 32.5 G/DL (30.0-36.0); MCV 102.6 FL (86-99); RBC DIS.WIDTH-CV 13.4 % (11.8-14.6); RBC DIS.WIDTH-SD 50.8 % (39-53); RED BLOOD COUNT 3.84 M/uL (4.00-5.50); WHITE BLOOD COUNT 3.5 K/uL (4.1-10.2)
[2017-11-28 08:43] LABS: CHLORIDE 107 MEQ/L (99-109); CREATININE 0.6 MG/DL (0.6-1.3); GFR ESTIMATE (CALCULATED) > 59 mL/min/ (58.99-99999); GLUCOSE 121 mg/dL (70-99); MAGNESIUM 1.6 mg/dl (1.3-2.7); POTASSIUM 3.2 MEQ/L (3.7-5.4); SODIUM 139 MEQ/L (136-147); UREA NITROGEN (BUN) 2 mg/dL (9-23)
[2017-11-28 09:00] VITALS: BP 124/80
[2017-11-28 09:16] LABS: IMM.PLATELET FRACTION 7.1 (1-7); PLAT.SUFFICIENCY DECREASED
[2017-11-28 09:23] LABS: PLATELET COUNT 43 K/uL (156-360)
[2017-11-28 11:44] VITALS: BP 140/82
[2017-11-28 20:30] VITALS: BP 158/86
[2017-11-29 00:09] VITALS: BP 154/87
[2017-11-29 10:10] LABS: HEMATOCRIT 39.4 % (38.0-50.0); HEMOGLOBIN 12.8 G/DL (12.5-16.6); MCH 33.1 PG (29.0-34.0); MCHC 32.5 G/DL (30.0-36.0); MCV 101.8 FL (86-99); RBC DIS.WIDTH-CV 13.2 % (11.8-14.6); RBC DIS.WIDTH-SD 49.8 % (39-53); RED BLOOD COUNT 3.87 M/uL (4.00-5.50); WHITE BLOOD COUNT 3.7 K/uL (4.1-10.2)
[2017-11-29 10:13] LABS: PLATELET COUNT 50 K/uL (156-360)
[2017-11-29 11:41] LABS: CHLORIDE 106 MEQ/L (99-109); CREATININE 0.5 MG/DL (0.6-1.3); GFR ESTIMATE (CALCULATED) > 59 mL/min/ (58.99-99999); GLUCOSE 127 mg/dL (70-99); POTASSIUM 3.3 MEQ/L (3.7-5.4); SODIUM 138 MEQ/L (136-147); UREA NITROGEN (BUN) 2 mg/dL (9-23)
[2017-11-29 12:30] VITALS: BP 171/59
[2017-11-29 16:12] VITALS: BP 168/98
[2017-11-29 20:14] VITALS: BP 138/94
[2017-11-30 06:01] VITALS: BP 140/82
[2017-11-30 08:09] VITALS: BP 136/87
[2017-11-30 20:01] VITALS: BP 150/88
[2017-12-01 03:21] VITALS: BP 174/95
[2017-12-01 04:56] LABS: HEMATOCRIT 42.5 % (38.0-50.0); HEMOGLOBIN 13.8 G/DL (12.5-16.6); MCH 32.9 PG (29.0-34.0); MCHC 32.5 G/DL (30.0-36.0); MCV 101.2 FL (86-99); PLATELET COUNT 65 K/uL (156-360); RBC DIS.WIDTH-CV 13.1 % (11.8-14.6); RBC DIS.WIDTH-SD 49.1 % (39-53); WHITE BLOOD COUNT 4.4 K/uL (4.1-10.2)
[2017-12-01 05:24] LABS: CHLORIDE 101 MEQ/L (99-109); CREATININE 0.7 MG/DL (0.6-1.3); GFR ESTIMATE (CALCULATED) > 59 mL/min/ (58.99-99999); GLUCOSE 126 mg/dL (70-99); POTASSIUM 3.8 MEQ/L (3.7-5.4); SODIUM 136 MEQ/L (136-147); UREA NITROGEN (BUN) 2 mg/dL (9-23)
[2017-12-01 09:00] VITALS: BP 140/90
[2017-12-01 11:33] VITALS: BP 142/80
[2017-12-01] MEDS ORDERED: DIFICID200 MG PO (12:22)
[2017-12-01] MEDS ORDERED: VANCOMYCIN HCL250 MG PO (12:22)
[2017-12-01] MEDS ORDERED: CHOLESTYRAMINE P4 GM PO (12:22)
[2017-12-01] MEDS ORDERED: OXYCODONE HCL5 MG PO (16:03)
== END 2017-12-01 16:14 | disposition home or self-care (01) | DRG 372 ==
LOC: EME 07:04 → EDOF 12:44 → 4SOUTH 12:44 → ENRESERV 12:54 → 4SOUTH 14:06
PROVIDERS: Emergency Medicine; Hospitalist; Internal Medicine; Nurse Practitioner Adult Health; Nurse Practitioner Family; Physician Assistant; Physician Assistant Medical
DX: A04.71 Enterocolitis due to Clostridium difficile, recurrent (principal); E87.2 Acidosis; D69.59 Other secondary thrombocytopenia; E83.42 Hypomagnesemia; K70.31 Alcoholic cirrhosis of liver with ascites; E11.42 Type 2 diabetes mellitus with diabetic polyneuropathy; E86.0 Dehydration; E87.6 Hypokalemia; I10 Essential (primary) hypertension; K21.9 Gastro-esophageal reflux disease without esophagitis; F10.20 Alcohol dependence, uncomplicated; F41.9 Anxiety disorder, unspecified; F17.200 Nicotine dependence, unspecified, uncomplicated; Z79.84 Long term (current) use of oral hypoglycemic drugs
CPT/HCPCS: 74176; 74177; 80048; 80048 91; 80076; 81003; 82948; 83605; 83735; 85025; 85025 91; 85027; 87040; 87493; 99281; 99285; G0378; J1815; J1885; J2405; J3010; J3411; J3475; J3480; J7030; S0030

== ENCOUNTER 2017-12-10 07:53 | Emergency (ER) | payer OTHER ==
[~2017-12-10] VITALS: Ht 190.5 cm; Wt 97.9 kg
[~2017-12-10 07:53] MED LIST changes: +B-1100 MG PO; +CARAFATE1 GM PO; +CHOLESTYRAMINE P4 GM PO; +DAILY VITE1 EAC1 PO; +DIFICID200 MG PO; +LORAZEPAM2 MG PO
[2017-12-10] MEDS ORDERED: ULTRAM50 MG PO (08:39)
[2017-12-10 09:22] VITALS: BP 130/90
== END 2017-12-10 09:24 | disposition home or self-care (01) ==
LOC: EME 07:53
DX: T25.222A Burn of second degree of left foot, initial encounter (principal); T25.221A Burn of second degree of right foot, initial encounter; T31.0 Burns involving less than 10% of body surface; X19.XXXA Contact with other heat and hot substances, initial encounter; Y93.01 Activity, walking, marching and hiking; I10 Essential (primary) hypertension; E11.9 Type 2 diabetes mellitus without complications; K21.9 Gastro-esophageal reflux disease without esophagitis; F41.9 Anxiety disorder, unspecified; M10.9 Gout, unspecified; F17.200 Nicotine dependence, unspecified, uncomplicated
CPT/HCPCS: 99281; 99283